=== PATIENT | male | born 1950 ===

== ENCOUNTER 2017-12-19 10:27 | Emergency (ER) | payer SELFPAY ==
[2017-12-19 10:35] VITALS: TEMP 97.6; O2SAT 98
[2017-12-19] MEDS ORDERED: Sodium Chloride 0.9% 1,000 ML IV ONE (10:42)
[2017-12-19] MEDS ORDERED: Sodium Chloride 0.9% 1,000 ML ONE (10:56)
--- NOTE | 2017-12-19 11:05 | C.PDOC ---
History Of Present Illness 67 year old male, whose PMHx includes Hypertension, presents to the ED for evaluation of abdominal pain which has been ongoing for 2 days. Patient states the pain initially began around his upper abdomen and radiated into his chest. He now states the pain is mostly around his left side, and still radiates into his chest. He states symptoms are worse when taking deep breaths. He denies fever, chills, nausea, vomiting. PMD: Dr. Cari Alcantara Time Seen by Provider: 12/19/17 10:40 Chief Complaint (Nursing): Abdominal Pain History Per: Patient History/Exam Limitations: no limitations Onset/Duration Of Symptoms: Days (2) Current Symptoms Are (Timing): Still Present Severity: Mild Pain Scale Rating Of: 2 Location Of Pain/Discomfort: LUQ Radiation Of Pain To:: Chest Quality Of Discomfort: "Pain" Associated Symptoms: denies: Fever, Chills, Nausea, Vomiting Exacerbating Factors: Deep Breaths Additional History Per: Patient Past Medical History Reviewed: Historical Data, Nursing Documentation, Vital Signs Vital Signs: Last Vital Signs Temp 97.6 F 12/19/17 10:32 Pulse 78 12/19/17 12:42 Resp 16 12/19/17 12:42 BP 148/78 12/19/17 12:42 Pulse Ox 98 12/19/17 16:05 - Medical History PMH: HTN Surgical History: Appendectomy, Tonsillectomy Family History: States: Unknown Family Hx - Social History Hx Alcohol Use: No Hx Substance Use: No - Immunization History Hx Tetanus Toxoid Vaccination: No Hx Influenza Vaccination: No Hx Pneumococcal Vaccination: No Review Of Systems Constitutional: Negative for: Fever, Chills Respiratory: Negative for: Shortness of Breath Gastrointestinal: Positive for: Abdominal Pain (left-sided, radiating into chest ). Negative for: Nausea, Vomiting Physical Exam - Physical Exam Appears: Non-toxic, Other (mildly short of breath ) Skin: Normal Color, Warm, Dry Head: Atraumatic, Normacephalic Eye(s): bilateral: Normal Inspection Oral Mucosa: Moist Neck: Supple Chest: Symmetrical, No Deformity, Tenderness (anterior aspect of left lower rib cage) Cardiovascular: Rhythm Regular, No Murmur Respiratory: Normal Breath Sounds, No Rales, No Rhonchi, No Wheezing Gastrointestinal/Abdominal: Soft, No Tenderness, No Guarding, No Rebound Extremity: Normal ROM, Capillary Refill (less than 2 seconds ) Neurological/Psych: Oriented x3, Normal Speech, Normal Cognition Gait: Steady ED Course And Treatment - Laboratory Results Result Diagrams: 12/19/17 11:11 12/19/17 11:11 Lab Interpretation: Normal O2 Sat by Pulse Oximetry: 98 (on RA) Pulse Ox Interpretation: Normal - Other Rad No standard instances X-Ray: Viewed By Me Interpretation: FINDINGS: LINES AND TUBES: None. LUNG AND PLEURA: The lungs are well inflated. There is an apparent 1.9 cm lobular opacity in the right lung base. No focal consolidation. HEART AND MEDIASTINUM: The heart is not enlarged. The hilar and mediastinal contours are within normal limits. SKELETAL STRUCTURES: The bony structures are within normal limits for the patient's age. VISUALIZED UPPER ABDOMEN: Normal. OTHER FINDINGS: None. IMPRESSION: No active pulmonary disease. 1.9 cm lobular opacity in the right lung base could represent nipple shadow however parenchymal nodule cannot be excluded. Repeat PA radiograph with nipple markers is recommended for further evaluation. Progress Note: D-dimer, CBC, CMP, Lipase, Urinalysis, and CXR ordered and reviewed. Toradol IVP and IV Fluids administered. On re-evaluation lungs clear , feeling better Reassessment Condition: Improved Disposition Counseled Patient/Family Regarding: Studies Performed, Diagnosis, Need For Followup, Rx Given - Disposition Referrals: Cari Alcantara MD [Staff Provider] - Disposition: HOME/ ROUTINE Disposition Time: 12:30 Condition: STABLE Additional Instructions: Follow up with PMD for further evaluation Prescriptions: Naproxen [Naprosyn] 1 tab PO BID PRN #25 tab PRN Reason: Pain Instructions: Costochondritis Forms: [facility] (Pashto) - POA Present On Arrival: None - Clinical Impression Clinical Impression: Chest wall pain - 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 - Scribe Statement The provider has reviewed the documentation as recorded by the Scribe (Manju Cortez) All medical record entries made by the Scribe were at my direction and personally dictated by me. I have reviewed the chart and agree that the record accurately reflects my personal performance of the history, physical exam, medical decision making, and the department course for this patient. I have also personally directed, reviewed, and agree with the discharge instructions and disposition.
[2017-12-19 11:20] LABS: BASO # 0.1 K/uL (0.0-0.2); BASO % 0.9 % (0.0-2.0); EOS # 0.2 K/uL (0.0-0.7); EOS % 3.4 % (0.0-4.0); HEMOGLOBIN 15.6 g/dL (12.0-18.0); LYMPH # 2.3 K/uL (1.0-4.3); LYMPH % 32.9 % (20.0-40.0); MEAN CELL VOLUME 89.3 fL (80.0-94.0); MEAN CORPUSCULAR HEMOGLOBIN 31.1 pg (27.0-31.0); MEAN CORPUSCULAR HGB CONC 34.8 g/dL (33.0-37.0); MEAN PLATELET VOLUME 7.9 fL (7.2-11.7); MONO # 0.6 K/uL (0.0-0.8); MONO % 8.1 % (0.0-10.0); NEUT # 3.8 K/uL (1.8-7.0); NEUT % 54.7 % (50.0-75.0); NRBC % 0.2 % (0.0-2.0); RBC 5.03 Mil/uL (4.40-5.90); RED CELL DISTRIBUTION WIDTH 12.6 % (11.5-14.5); WHITE BLOOD COUNT 6.9 K/uL (4.8-10.8)
--- NOTE | 2017-12-19 11:23 | RAD ---
HISTORY: COMPARISON: No prior. TECHNIQUE: Chest PA and lateral FINDINGS: LINES AND TUBES: None. LUNG AND PLEURA: The lungs are well inflated. There is an apparent 1.9 cm lobular opacity in the right lung base. No focal consolidation. HEART AND MEDIASTINUM: The heart is not enlarged. The hilar and mediastinal contours are within normal limits. SKELETAL STRUCTURES: The bony structures are within normal limits for the patient's age. VISUALIZED UPPER ABDOMEN: Normal. OTHER FINDINGS: None. IMPRESSION: No active pulmonary disease. 1.9 cm lobular opacity in the right lung base could represent nipple shadow however parenchymal nodule cannot be excluded. Repeat PA radiograph with nipple markers is recommended for further evaluation.
[2017-12-19 11:24] LABS: SQUAMOUS EPITHIAL < 1 /hpf (0-5); URINE BACTERIA RARE (<OCC); URINE BILIRUBIN NEGATIVE (NEGATIVE); URINE BLOOD 1+ (NEGATIVE); URINE CLARITY Clear (Clear); URINE COLOR Yellow (YELLOW); URINE GLUCOSE (UA) NORMAL (Normal); URINE LEUKOCYTE ESTERASE NEG Leu/uL (Negative); URINE PROTEIN NEGATIVE (NEGATIVE); URINE UROBILINOGEN NORMAL mg/dL (0.2-1.0)
[2017-12-19 11:36] LABS: ALB/GLOB RATIO 1.2 (1.0-2.1); ALBUMIN 3.9 g/dL (3.5-5.0); ALT/SGPT 34 U/L (21-72); AST/SGOT 24 U/L (17-59); BLOOD UREA NITROGEN 17 mg/dL (9-20); CALCIUM 9.3 mg/dl (8.6-10.4); GFR AFRICAN-AMERICAN > 60; GFR NON-AFRICAN AMERICAN > 60; LIPASE 160 U/L (23-300)
[2017-12-19 12:43] VITALS: BP 148/78; PULSE 78; RESP 16
== END 2017-12-19 12:42 | disposition home or self-care (01) ==
LOC: C.ER 10:27
DX: R07.89 Other chest pain (principal); I10 Essential (primary) hypertension
CPT/HCPCS: 71046; 80053; 81001; 83690; 85025; 85378; 96361; 96374; 99284; J1885; J7040

== ENCOUNTER 2018-12-24 00:04 | Emergency (ER) | payer SELFPAY ==
[2018-12-24 00:19] VITALS: BP 159/87; PULSE 92; RESP 22; TEMP 98.7; O2SAT 97
--- NOTE | 2018-12-24 00:51 | C.PDOC ---
History Of Present Illness 68 year old male presents to the ED c/o right upper toothache for the past 3 days. 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 Patient denies fever, chills, sore throat, tongue swelling, lip swelling, headache, rash. Time Seen by Provider: 12/24/18 00:32 Chief Complaint (Nursing): Dental Pain History Per: Patient History/Exam Limitations: no limitations Onset/Duration Of Symptoms: Days (3) Current Symptoms Are (Timing): Still Present Quality: Positive for: "Pain" Recent travel outside of the [place]: No Additional History Per: Patient Past Medical History Reviewed: Historical Data, Nursing Documentation, Vital Signs Vital Signs: Last Vital Signs Temp 98.7 F 12/24/18 00:13 Pulse 92 H 12/24/18 00:13 Resp 22 12/24/18 00:13 BP 159/87 H 12/24/18 00:13 Pulse Ox 97 12/24/18 00:13 Primary Care Provider: Cari Alcantara I - Medical History PMH: HTN Surgical History: Appendectomy, Tonsillectomy Family History: States: Unknown Family Hx - Social History Hx Alcohol Use: No Hx Substance Use: No - Immunization History Hx Tetanus Toxoid Vaccination: No Hx Influenza Vaccination: No Hx Pneumococcal Vaccination: No Review Of Systems Constitutional: Negative for: Fever, Chills ENT: Positive for: Mouth Pain, Mouth Swelling. Negative for: Throat Pain, Throat Swelling Gastrointestinal: Negative for: Nausea, Vomiting Musculoskeletal: Negative for: Neck Pain Skin: Negative for: Rash Neurological: Negative for: Headache Physical Exam - Physical Exam Appears: Non-toxic, No Acute Distress Skin: Normal Color, Warm, Dry, No Rash Head: Atraumatic, Normacephalic, Swelling (right facial) Eye(s): bilateral: Normal Inspection, PERRL, EOMI Ear(s): Bilateral: Normal Oral Mucosa: Moist, No Trismus, No Other (swelling) Tongue: No Swelling, Other (no elevation) Lips: No Swelling Teeth: Caries (extensive dental ), Other (multiple missing teeth. Decay on right upper pre molar.) Gingiva: Erythema (right upper molar area extending to the right cheek), Swelling (right upper molar area), Tender (right upper molar area), No Bleeding Throat: Normal, No Erythema, No Exudate, No Drooling Neck: Normal ROM, Supple Lymphatic: No Adenopathy Neurological/Psych: Oriented x3, Normal Speech, Normal Cognition Gait: Steady ED Course And Treatment O2 Sat by Pulse Oximetry: 97 (ON RA) Pulse Ox Interpretation: Normal Progress Note: Plan: - Clindamycin 300 mg PO. - Motrin 600 mg PO. Patient was given first dose of antibiotics in the ED, advised to follow up with dentist for further evaluation. Disposition - Disposition Disposition: HOME/ ROUTINE Disposition Time: 00:48 Condition: STABLE Additional Instructions: Please follow up with a dentist May follow up at [facility] dental office in [place] Take meds as directed Return to ER if worse Prescriptions: Clindamycin [Cleocin] 300 mg PO QID #28 cap Ibuprofen [Motrin] 600 mg PO Q6H #24 tab Instructions: Tooth Decay, Adult (DC) Forms: [employer] (Estonian) - Clinical Impression Clinical Impression: Dental caries, Infected tooth - PA / CITY DRIVER / 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 - Scribe Statement The provider has reviewed the documentation as recorded by the Scribe Abdulkadir Clemente All medical record entries made by the Scribe were at my direction and personally dictated by me. I have reviewed the chart and agree that the record accurately reflects my personal performance of the history, physical exam, medical decision making, and the department course for this patient. I have also personally directed, reviewed, and agree with the discharge instructions and disposition.
== END 2018-12-24 00:58 | disposition home or self-care (01) ==
LOC: C.ER 00:04
DX: K02.9 Dental caries, unspecified (principal); I10 Essential (primary) hypertension